=== PATIENT | male | born 2000 | race Asian ===

== ENCOUNTER 2024-04-27 02:40 | Emergency (ER) | payer SELFPAY ==
[2024-04-27] MEDS: HYDROmorphone 1 MG/ML Syringe IVPUSH ONE (02:49)
[2024-04-27] MEDS: diphenhydrAMINE 50 MG/ML SDV IVPUSH ONE (02:58)
[2024-04-27] MEDS: Lidocaine 1% with EPINEPHrine 1:100,000 10 ML MDV INJECT ONE (02:58)
[2024-04-27] MEDS: Famotidine 20 MG/2 ML SDV IVPUSH ONE (03:01)
[2024-04-27] MEDS: Take Home: Acetaminophen/HYDROcodone 325-5 MG, 2 Tab Pack PO ONE (04:22)
== END 2024-04-27 04:28 | disposition home or self-care (01) ==
LOC: CC.ED 02:40
DX: L02.31 Cutaneous abscess of buttock (principal)
CPT/HCPCS: 10060; 87070; 87077; 87186; 87205; 96374; 96375; 99283-25; A9270-GY; J1171; J1200

== ENCOUNTER 2024-05-28 20:36 | Emergency (ER) | payer OTHER ==
[2024-05-28] MEDS: Acetaminophen 500 MG Tab PO ONE (21:29)
== END 2024-05-28 21:55 | disposition home or self-care (01) ==
LOC: CC.ED 20:36
DX: R42 Dizziness and giddiness (principal); V48.6XXA Car passenger injured in noncollision transport accident in traffic accident, initial encounter
CPT/HCPCS: 99283; A9270-GY